=== PATIENT | male | born 1995 | race Caucasian/White ===

== ENCOUNTER 2020-08-07 05:50 | Day surgery (SDC) | payer BC ==
[~2020-08-07] VITALS: Ht 177.8 cm; Wt 185.0 kg
[2020-08-07] VITALS (7 sets, daily range): BP systolic 113–137; BP diastolic 69–88
[~2020-08-07 05:50] MED LIST: NO HOME MEDS; famotidine 20mg tablet PO ONE; ringers solution, lacted 1,000 ML IV SCH
[2020-08-07] MEDS ORDERED: BUPIVAcaine/PF 2.5mg/ml (0.25%) 10ml vial ONE ×2 (06:48→08:25)
[2020-08-07] MEDS ORDERED: LIDOcaine 0.5% (5mg/ml) 50ml vial ONE (07:17)
[2020-08-07] MEDS ORDERED: ondansetron/PF 4mg/2ml inj IV PRN (07:20)
[2020-08-07] MEDS ORDERED: labetalol 20mg/4ml (5mg/ml) syringe IV PRN (07:20)
[2020-08-07] MEDS ORDERED: morphine 4 MG/ML inj SYRINge IV PRN (07:20)
[2020-08-07] MEDS ORDERED: ringers solution, lacted 1,000 ML IV SCH (07:20)
[2020-08-07] MEDS ORDERED: hydrALAZINE 20mg/ml inj. IV PRN (07:20)
[2020-08-07] MEDS ORDERED: morphine 2 MG/ML inj. syringe IV PRN (07:20)
[2020-08-07] MEDS ORDERED: fentaNYL/PF 50MCG/1 ML 2ML syringe IV PRN ×2 (07:20)
[2020-08-07] MEDS ORDERED: fentaNYL/PF 50MCG/1 ML 2ML syringe ONE (07:25)
[2020-08-07] MEDS ORDERED: MIDAZolam 1mg/ml 10ml vial ONE (07:25)
[2020-08-07] MEDS ORDERED: ketorolac trometh. 30mg/ml inj. ONE (07:28)
--- NOTE | 2020-08-07 09:00 | NUR ---
Received from OR via [facility], accompanied by Anesthesiologist DR LEVIN, report given by Anesthesiolgist. PATIENT A&OX4, DENIES PAIN, V/S WNL, NEUROVASCULAR CHECKS INTACT-FINGERS PINK AND WARM ON LEFT HAND, ABLE TO FEEL AND MOVE THEM, 20G PIV RFA-LR RUNNING, SCDS ON
--- NOTE | 2020-08-07 10:00 | NUR ---
PATIENT A&OX4, DENIES PAIN, V/S WNL, NEUROVASCULAR CHECKS INTACT-FINGERS TO LEFT HAND PINK,WARM, +SENSATION, 20G PIV RFA D/C, SCDS OFF, DRESSING TO LEFT WRIST WITH SPLINT-CDI ELEVATED WITH ICEBAG APPLIED. I HAVE REVIEWED D/C INSTRUCTIONS WITH PATIENT AND MOM AND THEY HAVE VERBALIZED UNDERSTANDING. PATIENT D/C HOME WITH ALL BELONGINGS AND FAMILY GAVE TRANSPORT HOME.
== END 2020-08-07 10:00 | disposition home or self-care (01) ==
LOC: PAS 05:50
PROVIDERS: ATTEND Orthopaedic Surgery Hand Surgery
DX: S52.572A Other intraarticular fracture of lower end of left radius, initial encounter for closed fracture (principal); S52.612A Displaced fracture of left ulna styloid process, initial encounter for closed fracture; V87.8XXA Person injured in other specified noncollision transport accidents involving motor vehicle (traffic), initial encounter; Y93.89 Activity, other specified; Y92.89 Other specified places as the place of occurrence of the external cause; Y99.8 Other external cause status
CPT/HCPCS: 25609; 25652; 36415; 82948; 87426; C1713; J1885; J2001; J2250; J3010; J3490; A4215; A6449; A7000; J7120